=== PATIENT | female | born 1970 | race Caucasian/White ===

== ENCOUNTER → 2020-10-10 | Outpatient (CLI) | payer OTHER ==
[2020-10-11 12:14] LABS: COMPLEMENT C3, SERUM 147 mg/dL (82-167); COMPLEMENT C4, SERUM 16 mg/dL (12-38)
== END ==
LOC: LAB 14:11
PROVIDERS: Internal Medicine
DX: D89.89 Other specified disorders involving the immune mechanism, not elsewhere classified (principal); Q87.19 Other congenital malformation syndromes predominantly associated with short stature
CPT/HCPCS: 86160

== ENCOUNTER → 2021-10-08 | Outpatient (CLI) | payer OTHER ==
[2021-10-08 16:55] LABS: HEMOGLOBIN 14.2 gm/dl (12.3-15.3); RED BLOOD COUNT 4.22 M/UL (4.00-5.10); WHITE BLOOD COUNT 5.7 K/UL (4.5-11.0)
[2021-10-08 17:15] LABS: BUN/CREATININE RATIO 16 (0-10)
== END ==
LOC: LAB 16:20
PROVIDERS: Internal Medicine
DX: Z51.81 Encounter for therapeutic drug level monitoring (principal); R76.8 Other specified abnormal immunological findings in serum; Q87.19 Other congenital malformation syndromes predominantly associated with short stature; D72.819 Decreased white blood cell count, unspecified
CPT/HCPCS: 36415; 80053; 85025; 86160; 86162; 86255